=== PATIENT | female | born 1990 | race Caucasian/White ===

== ENCOUNTER 2021-10-24 11:10 | Outpatient (CLI) | payer OTHER | END 2021-10-24 11:19 | disposition home or self-care (01) | LOC: RAD 11:10 | PROVIDERS: ATTEND Orthopaedic Surgery | DX: M25.571 Pain in right ankle and joints of right foot (principal); M25.572 Pain in left ankle and joints of left foot ==

== ENCOUNTER 2022-01-29 10:41 | Outpatient (CLI) | payer OTHER | END 2022-01-29 11:55 | disposition home or self-care (01) | LOC: PRENATAL 10:41 | PROVIDERS: ATTEND Obstetrics & Gynecology Maternal & Fetal Medicine | DX: O36.80X0 Pregnancy with inconclusive fetal viability, not applicable or unspecified (principal); Z36.0 Encounter for antenatal screening for chromosomal anomalies; Z3A.11 11 weeks gestation of pregnancy ==

== ENCOUNTER 2022-04-02 13:04 | Outpatient (CLI) | payer OTHER | END 2022-04-02 15:17 | disposition home or self-care (01) | LOC: PRENATAL 13:04 | PROVIDERS: ATTEND Obstetrics & Gynecology Maternal & Fetal Medicine | DX: O35.3XX0 Maternal care for (suspected) damage to fetus from viral disease in mother, not applicable or unspecified (principal); O35.0XX0 Maternal care for (suspected) central nervous system malformation in fetus, not applicable or unspecified ==

== ENCOUNTER 2022-06-25 10:43 | Outpatient (CLI) | payer OTHER | END 2022-06-25 11:58 | disposition home or self-care (01) | LOC: PRENATAL 10:43 | PROVIDERS: ATTEND Obstetrics & Gynecology Maternal & Fetal Medicine | DX: O26.849 Uterine size-date discrepancy, unspecified trimester (principal); O36.8199 Decreased fetal movements, unspecified trimester, other fetus; Z3A.32 32 weeks gestation of pregnancy ==

== ENCOUNTER 2022-07-19 14:00 | Inpatient (IN) | payer OTHER ==
[~2022-07-19] VITALS: Ht 160 cm; Wt 2.7 kg
[2022-07-31] MEDS ORDERED: PRENATAL + DHA1 EAC1 PO (08:36)
[2022-07-31] MEDS ORDERED: MAXFE CAPLET1 EAC1 PO (08:44)
== END 2022-08-03 17:53 | disposition home or self-care (01) | DRG 788 ==
LOC: LDR 07-31 08:16 → OB/GYN 07-31 08:16 → LDR 07-31 09:16 → OB/GYN 07-31 14:04 → LDR 08-17 14:00
PROVIDERS: ADMIT Student in an Organized Health Care Education/Training Program; ATTEND Student in an Organized Health Care Education/Training Program
PROC: 4A1HXCZ Monitoring of Products of Conception, Cardiac Rate, External Approach (ICD-10-PCS; 2022-07-31)
PROC: 10D00Z1 Extraction of Products of Conception, Low, Open Approach (ICD-10-PCS; principal; 2022-07-31 11:00)
DX: O36.8130 Decreased fetal movements, third trimester, not applicable or unspecified (principal); Z3A.37 37 weeks gestation of pregnancy; Z37.0 Single live birth; Z20.822 Contact with and (suspected) exposure to COVID-19

== ENCOUNTER 2024-04-07 09:44 | Outpatient (CLI) | payer OTHER ==
[~2024-04-07 09:44] MED LIST: MAXFE CAPLET1 EAC1 PO; PRENATAL + DHA1 EAC1 PO
== END 2024-04-07 09:45 | disposition home or self-care (01) ==
LOC: PRENATAL 09:44
PROVIDERS: ATTEND Obstetrics & Gynecology Maternal & Fetal Medicine
DX: O36.80X0 Pregnancy with inconclusive fetal viability, not applicable or unspecified (principal); Z36.82 Encounter for antenatal screening for nuchal translucency; O34.219 Maternal care for unspecified type scar from previous cesarean delivery; Z36.9 Encounter for antenatal screening, unspecified; Z3A.11 11 weeks gestation of pregnancy

== ENCOUNTER 2024-06-01 09:29 | Outpatient (CLI) | payer OTHER | END 2024-06-01 09:30 | disposition home or self-care (01) | LOC: PRENATAL 09:29 | PROVIDERS: ATTEND Obstetrics & Gynecology Maternal & Fetal Medicine | DX: O44.00 Complete placenta previa NOS or without hemorrhage, unspecified trimester (principal); O34.219 Maternal care for unspecified type scar from previous cesarean delivery; Z3A.19 19 weeks gestation of pregnancy ==

== ENCOUNTER 2024-08-04 17:01 | Outpatient (CLI) | payer OTHER ==
[~2024-08-04] VITALS: Ht 160 cm; Wt 68.0 kg
[2024-08-04 16:16] VITALS: BP 97/63
[2024-08-04 17:40] LABS: HEMATOCRIT 31.1 % (36.0-45.00); HEMOGLOBIN 10.7 g/dL (12.0-15.00); MEAN CELL VOLUME 91.6 fL (80.00-100.00); MEAN CORPUSCULAR HEMOGLOBIN 31.5 pg (27.00-32.0); MEAN CORPUSCULAR HGB CONC 34.4 g/dl (32.0-36.0); PLATELET COUNT 156 K/uL (150-450); RED BLOOD COUNT 3.39 M/uL (4.00-6.00); RED CELL DISTRIBUTION WIDTH 12.8 % (11.5-14.5); URINE APPEARANCE Clear; URINE BILIRRUBIN Negative (NEGATIVE); URINE BLOOD Negative; URINE COLOR Yellow; URINE GLUCOSE Negative (NEGATIVE); URINE KETONE Trace (NEGATIVE); URINE LEUKOCYTE Small; URINE NITRATE Negative; URINE PROTEIN Negative (NEGATIVE); URINE UROBILINOGEN 0.2 E.U./dl
[2024-08-04 17:41] LABS: URINE BACTERIA 288.8 uL (0.0-1933); URINE EPITHELIAL CELLS 12.3 uL (0.0-38.8); URINE RBC 4.8 uL (0.0-20.8); URINE WBC 13.1 uL (0.0-23.2)
[2024-08-04 18:05] LABS: ALBUMIN 2.7 gm/dL (3.4-5.0); BILIRUBIN TOTAL 0.18 mg/dL (0.3-1.2); CALCIUM 8.5 mg/dL (8.5-10.1); CREATININE SERUM 0.45 mg/dL (0.55-1.02); GFR 161.47; GLOBULINA 3.5 G/DL (2.4-3.5); POTASSIUM 3.75 mEq/L (3.5-5.1); TOTAL PROTEIN 6.2 gm/dL (6.4-8.2); URINE CAST 0.14 uL (0.0-1.40)
[2024-08-04 19:32] VITALS: BP 97/63
== END 2024-08-04 19:32 | disposition home or self-care (01) ==
LOC: OBS/DEL 17:01
PROVIDERS: ATTEND Student in an Organized Health Care Education/Training Program
DX: O46.93 Antepartum hemorrhage, unspecified, third trimester (principal); Z3A.29 29 weeks gestation of pregnancy

== ENCOUNTER 2024-08-31 10:07 | Outpatient (CLI) | payer OTHER | END 2024-08-31 10:10 | disposition home or self-care (01) | LOC: PRENATAL 10:07 | PROVIDERS: ATTEND Obstetrics & Gynecology Maternal & Fetal Medicine | DX: O26.849 Uterine size-date discrepancy, unspecified trimester (principal); O36.8199 Decreased fetal movements, unspecified trimester, other fetus; O34.219 Maternal care for unspecified type scar from previous cesarean delivery; O36.60X0 Maternal care for excessive fetal growth, unspecified trimester, not applicable or unspecified; Z3A.34 34 weeks gestation of pregnancy ==

== ENCOUNTER 2024-09-29 10:41 | Outpatient (CLI) | payer OTHER | END 2024-09-29 10:42 | disposition home or self-care (01) | LOC: PRENATAL 10:41 | PROVIDERS: ATTEND Obstetrics & Gynecology Maternal & Fetal Medicine | DX: O26.849 Uterine size-date discrepancy, unspecified trimester (principal); O36.8199 Decreased fetal movements, unspecified trimester, other fetus; O34.219 Maternal care for unspecified type scar from previous cesarean delivery; O36.60X0 Maternal care for excessive fetal growth, unspecified trimester, not applicable or unspecified; Z3A.37 37 weeks gestation of pregnancy ==

== ENCOUNTER 2024-10-02 09:15 | Inpatient (IN) | payer OTHER ==
[~2024-10-02] VITALS: Ht 160 cm; Wt 68.9 kg
[2024-10-02 11:10] LABS: HEMATOCRIT 33.5 % (36.0-45.00); HEMOGLOBIN 11.5 g/dL (12.0-15.00); MEAN CORPUSCULAR HEMOGLOBIN 31.1 pg (27.00-32.0); MEAN CORPUSCULAR HGB CONC 34.2 g/dl (32.0-36.0); PLATELET COUNT 159 K/uL (150-450); RED BLOOD COUNT 3.68 M/uL (4.00-6.00); RED CELL DISTRIBUTION WIDTH 13.2 % (11.5-14.5)
[2024-10-02 11:30] LABS: INR 1.01; PARTIAL THROMBOPLASTIN TIME 27.6 SECONDS (22.0-34.0)
[2024-10-02 12:07] LABS: CALCIUM 8.9 mg/dL (8.5-10.1); CREATININE SERUM 0.39 mg/dL (0.55-1.02); GFR 190.46; POTASSIUM 3.84 mEq/L (3.5-5.1)
[2024-10-08] MEDS ORDERED: OxyCODONE HCL 5 MG TABLET (ROXICODONE) PO PRN (08:00)
[2024-10-08 10:06] VITALS: BP 105/73
[2024-10-08] MEDS ORDERED: IRON325 MG PO (10:36)
[2024-10-08] MEDS ORDERED: ERYTHROMYCIN BASE OPHT 1GM EACH TUBE OP ONE ×2 (13:35→15:30)
[2024-10-08] MEDS ORDERED: CEFAZOLIN SODIUM 1,000 MG VIAL ONE (13:35)
[2024-10-08] MEDS ORDERED: OXYTOCIN 10 UNITS/ML VIAL ONE (13:35)
[2024-10-08] MEDS ORDERED: PROMETHAZINE HCL 50 MG/ML AMPUL IM PRN (14:30)
[2024-10-08] MEDS ORDERED: MEPERIDINE HCL/PF 50 MG/ML VIAL IM PRN (14:30)
[2024-10-08] MEDS ORDERED: KETOROLAC TROMETHAMINE 15 MG VIAL IV SCH (14:45)
[2024-10-08] MEDS ORDERED: MORPHINE SULFATE 4 MG/ML VIAL IV ONE ×2 (15:25→15:55)
[2024-10-08] MEDS ORDERED: CEFAZOLIN SODIUM 1,000 MG VIAL IV ONE (15:30)
[2024-10-08] MEDS ORDERED: OXYTOCIN 10 UNITS/ML VIAL IV ONE (15:30)
[2024-10-08] MEDS ORDERED: KETOROLAC TROMETHAMINE 30 MG VIAL ONE (16:47)
[2024-10-08] MEDS ORDERED: KETOROLAC TROMETHAMINE 30 MG VIAL IV SCH (17:00)
[2024-10-08 18:00] VITALS: BP 100/65
[2024-10-08] MEDS ORDERED: MORPHINE SULFATE 4 MG/ML CARTRIDGE IV PRN (18:45)
[2024-10-09 03:35] VITALS: BP 100/60
[2024-10-09 06:52] LABS: HEMATOCRIT 30.1 % (36.0-45.00); HEMOGLOBIN 10.3 g/dL (12.0-15.00); MEAN CORPUSCULAR HEMOGLOBIN 31.4 pg (27.00-32.0); MEAN CORPUSCULAR HGB CONC 34.1 g/dl (32.0-36.0); PLATELET COUNT 131 K/uL (150-450); RED BLOOD COUNT 3.27 M/uL (4.00-6.00); RED CELL DISTRIBUTION WIDTH 13.4 % (11.5-14.5)
[2024-10-09] MEDS ORDERED: OxyCODONE HCL/APAP UD (PERCOCET) PO PRN (08:00)
[2024-10-09 08:21] VITALS: BP 98/62
[2024-10-09] MEDS ORDERED: SIMETHICONE 125 MG CAPSULE PO SCH (09:00)
[2024-10-09] MEDS ORDERED: DOCUSATE SODIUM 100MG CAP PO SCH (09:00)
[2024-10-09] MEDS ORDERED: IBUprofen 800 MG TABLET PO SCH (09:00)
[2024-10-09] MEDS ORDERED: PNV,CALCIUM 72/IRON/FOLIC ACID 1 TAB TABLET PO SCH (09:00)
[2024-10-09] MEDS ORDERED: FERROUS SULFATE 325 MG TABLET.EC PO NR (13:00)
[2024-10-09 16:00] VITALS: BP 115/78
[2024-10-10 00:39] VITALS: BP 100/60
[2024-10-10 08:09] VITALS: BP 102/67
[2024-10-10 09:28] LABS: HEMATOCRIT 28.7 % (36.0-45.00); MEAN CELL VOLUME 92.3 fL (80.00-100.00); MEAN CORPUSCULAR HGB CONC 34.2 g/dl (32.0-36.0); PLATELET COUNT 143 K/uL (150-450); RED BLOOD COUNT 3.11 M/uL (4.00-6.00); RED CELL DISTRIBUTION WIDTH 13.4 % (11.5-14.5)
[2024-10-10 09:30] LABS: HEMOGLOBIN 9.8 g/dL (12.0-15.00); MEAN CORPUSCULAR HEMOGLOBIN 31.5 pg (27.00-32.0)
[2024-10-10 12:27] VITALS: BP 118/84
[2024-10-10] MEDS ORDERED: COLACE100 MG PO (12:32)
[2024-10-10] MEDS ORDERED: FERROUS SULFAT325 M1 PO (12:32)
[2024-10-10] MEDS ORDERED: OXYCODONE HCL5 MG PO (12:32)
[2024-10-10] MEDS ORDERED: IBUPROFEN800 MG PO (12:32)
[2024-10-11] MEDS ORDERED: FERROUS SULFATE 325 MG TABLET.EC PO SCH (09:00)
== END 2024-10-10 14:57 | disposition home or self-care (01) | DRG 788 ==
LOC: LDR 10-08 07:00 → OB/GYN 10-08 10:48 → O/R 10-08 10:48 → OB/GYN 10-08 15:32
PROVIDERS: Student in an Organized Health Care Education/Training Program; ADMIT Obstetrics & Gynecology; ATTEND Obstetrics & Gynecology
PROC: 4A1HXCZ Monitoring of Products of Conception, Cardiac Rate, External Approach (ICD-10-PCS; 2024-10-08)
PROC: 10D00Z1 Extraction of Products of Conception, Low, Open Approach (ICD-10-PCS; principal; 2024-10-08 07:00)
DX: O34.211 Maternal care for low transverse scar from previous cesarean delivery (principal); Z3A.39 39 weeks gestation of pregnancy; Z37.0 Single live birth